=== PATIENT | male | born 1960 | race Caucasian/White ===

== ENCOUNTER 2024-11-09 06:39 | Day surgery (SDC) | payer OTHER ==
[2024-11-01 11:17] VITALS: BMI 26.3
[2024-11-09 08:40] VITALS: TEMP 97.6
[2024-11-09 09:14] VITALS: BP 117/66; PULSE 58; RESP 19
== END 2024-11-09 09:22 | disposition home or self-care (01) ==
LOC: JASU-ENDO 06:39
PROVIDERS: ATTEND Internal Medicine Gastroenterology
PROC: 0DBN8ZX Excision of Sigmoid Colon, Via Natural or Artificial Opening Endoscopic, Diagnostic (ICD-10-PCS; principal; 2024-11-09 08:00)
DX: Z12.11 Encounter for screening for malignant neoplasm of colon (principal); K63.5 Polyp of colon; K63.89 Other specified diseases of intestine; Z86.0100 Personal history of colon polyps, unspecified; Z83.719 Family history of colon polyps, unspecified
CPT/HCPCS: 88305-TC